=== PATIENT | male | born 1990 | race Caucasian/White ===

== ENCOUNTER 2019-11-29 06:49 | Emergency (ER) | payer MEDICAID ==
[~2019-11-29] VITALS: Ht 182.9 cm; Wt 92.5 kg
[2019-11-29 06:54] VITALS: Ht 182.9 cm; Wt 92.5 kg
[2019-11-29 08:43] VITALS: BP 107/83
== END 2019-11-29 08:43 | disposition home or self-care (01) ==
LOC: ED 06:49
DX: S51.012A Laceration without foreign body of left elbow, initial encounter (principal); J45.909 Unspecified asthma, uncomplicated; F17.200 Nicotine dependence, unspecified, uncomplicated; W25.XXXA Contact with sharp glass, initial encounter; Y93.89 Activity, other specified; Y92.89 Other specified places as the place of occurrence of the external cause; Y99.8 Other external cause status
CPT/HCPCS: 90715; 99406; J2001

== ENCOUNTER 2020-02-05 02:52 | Emergency (ER) | payer MEDICAID ==
[~2020-02-05] VITALS: Ht 182.9 cm; Wt 90.4 kg
[2020-02-05 03:01] VITALS: Ht 182.9 cm; Wt 90.4 kg
[2020-02-05 05:09] VITALS: BP 126/85
== END 2020-02-05 05:09 | disposition home or self-care (01) ==
LOC: ED 02:52
DX: K08.89 Other specified disorders of teeth and supporting structures (principal); H92.02 Otalgia, left ear; J45.909 Unspecified asthma, uncomplicated
CPT/HCPCS: J1885

== ENCOUNTER 2020-02-10 11:39 | Emergency (ER) | payer MEDICAID ==
[~2020-02-10] VITALS: Ht 182.9 cm; Wt 90.3 kg
[2020-02-10 11:48] VITALS: BP 139/86; Ht 182.9 cm; Wt 90.3 kg
== END 2020-02-10 13:07 | disposition home or self-care (01) ==
LOC: ED 11:39
DX: F41.9 Anxiety disorder, unspecified (principal); F17.210 Nicotine dependence, cigarettes, uncomplicated

== ENCOUNTER 2020-02-27 15:28 | Emergency (ER) | payer MEDICAID ==
[~2020-02-27] VITALS: Ht 182.9 cm; Wt 90.7 kg
[2020-02-27 15:36] VITALS: BP 114/69; Ht 182.9 cm; Wt 90.7 kg
== END 2020-02-27 16:16 | disposition home or self-care (01) ==
LOC: ED 15:28
DX: S02.5XXA Fracture of tooth (traumatic), initial encounter for closed fracture (principal); J45.909 Unspecified asthma, uncomplicated; Z76.0 Encounter for issue of repeat prescription; W22.8XXA Striking against or struck by other objects, initial encounter; Y93.89 Activity, other specified; Y92.89 Other specified places as the place of occurrence of the external cause; Y99.8 Other external cause status

== ENCOUNTER 2020-04-07 07:07 | Emergency (ER) | payer MEDICAID ==
[~2020-04-07] VITALS: Ht 182.9 cm; Wt 94.3 kg
[2020-04-07 07:20] VITALS: Ht 182.9 cm; Wt 94.3 kg
[2020-04-07 08:14] VITALS: BP 142/98
== END 2020-04-07 08:14 | disposition home or self-care (01) ==
LOC: ED 07:07
DX: F41.1 Generalized anxiety disorder (principal); I10 Essential (primary) hypertension; F15.10 Other stimulant abuse, uncomplicated
CPT/HCPCS: 99406

== ENCOUNTER 2020-05-21 23:13 | Emergency (ER) | payer MEDICAID ==
[~2020-05-21] VITALS: Ht 180.3 cm; Wt 86.2 kg
[2020-05-21 23:18] VITALS: BP 148/97; Ht 180.3 cm; Wt 86.2 kg
== END 2020-05-22 00:12 | disposition home or self-care (01) ==
LOC: ED 23:13
DX: Z53.21 Procedure and treatment not carried out due to patient leaving prior to being seen by health care provider (principal)

== ENCOUNTER 2020-09-24 07:51 | Emergency (ER) | payer MEDICAID ==
[~2020-09-24] VITALS: Ht 180.3 cm; Wt 90.7 kg
[2020-09-24 08:01] VITALS: Ht 180.3 cm; Wt 90.7 kg
[2020-09-24 10:11] LABS: microscopic required? NO
[2020-09-24 10:25] LABS: UA SPECIFIC GRAVITY >=1.030 (1.005-1.035); urine erythrocyte NEGATIVE (NEGATIVE)
[2020-09-24 11:09] VITALS: BP 127/79
== END 2020-09-24 11:09 | disposition home or self-care (01) ==
LOC: ED 07:51
PROVIDERS: Emergency Medicine
DX: R36.9 Urethral discharge, unspecified (principal); J45.909 Unspecified asthma, uncomplicated
CPT/HCPCS: 87491; 87591; J0696

== ENCOUNTER 2020-10-26 00:22 | Emergency (ER) | payer MEDICAID, SELFPAY ==
[~2020-10-26] VITALS: Ht 185.4 cm; Wt 86.2 kg
[2020-10-26 00:23] VITALS: Ht 185.4 cm; Wt 86.2 kg
== END 2020-10-26 02:07 | disposition home or self-care (01) ==
LOC: ED 00:22
DX: J06.9 Acute upper respiratory infection, unspecified (principal); F11.10 Opioid abuse, uncomplicated; Z20.822 Contact with and (suspected) exposure to COVID-19
CPT/HCPCS: 87491; 87591; U0003

== ENCOUNTER 2020-11-01 12:42 | Emergency (ER) | payer MEDICAID ==
[~2020-11-01] VITALS: Ht 172.7 cm; Wt 90.7 kg
[2020-11-01 12:43] VITALS: Ht 172.7 cm; Wt 90.7 kg
[2020-11-01 13:55] VITALS: BP 147/90
== END 2020-11-01 13:55 | disposition home or self-care (01) ==
LOC: ED 12:42
DX: R05 Cough (principal); K59.00 Constipation, unspecified; F11.10 Opioid abuse, uncomplicated; R06.02 Shortness of breath; Z20.822 Contact with and (suspected) exposure to COVID-19